=== PATIENT | female | born 1960 | race Two or more races ===

== ENCOUNTER 2020-07-04 19:56 | Inpatient (IN) | payer BC ==
[~2020-07-04] VITALS: Ht 154.9 cm; Wt 88.9 kg
--- NOTE | 2020-07-04 20:00 | NUR ---
pt ZOHRA NESS from the [facility] where she had a R total knee replacement today. pt was in recovery and was requiring O2 which she does not wear at home. upon admit, pt is 92-94% on RA. pt states that she is pain free at this time. no family at bedside. R knee has surgical wrap in place with ice pack attached
--- NOTE | 2020-07-04 20:06 | NUR ---
Dr. Urrutia has been to bedside for eval
--- NOTE | 2020-07-04 20:16 | NUR ---
report to Aaliyah FRIEDMAN
--- NOTE | 2020-07-04 20:25 | NUR ---
Patient desat to 68-69% while sleeping, placed on 2L NC. ERP notified
--- NOTE | 2020-07-04 21:04 | NUR ---
Patient ambultory with steady gait assisted with walker to restroom
[2020-07-04 21:05] LABS: BASOPHILS % (AUTO) 0 % (0-1); EOSINOPHILS % (AUTO) 0 % (1-7); LYMPHOCYTES % (AUTO) 7 % (22-44); MEAN CORPUSCULAR HEMOGLOBIN 31.5 pg (27.0-34.8); MEAN CORPUSCULAR HGB CONC 33.7 g/dL (32.4-35.8); MEAN PLATELET VOLUME 9.4 fL (7.4-10.4); MONOCYTES % (AUTO) 3 % (2-9); NEUTROPHILS % (AUTO) 89 % (42-75); PLATELET COUNT 129 x10^3/uL (130-400); RED BLOOD COUNT 4.73 x10^6/uL (3.82-5.3); RED CELL DISTRIBUTION WIDTH 12.7 % (9.6-15.2)
[2020-07-04 21:15] LABS: ALBUMIN 3.1 g/dL (3.4-5.0); ANION GAP 8 mmol/L (5-15); CALCIUM 8.3 mg/dL (8.5-10.1); CHLORIDE 101 mmol/L (98-107)
[2020-07-04 21:36] LABS: MD SCAN
--- NOTE | 2020-07-04 22:00 | NUR ---
Patient resting comfortably in gurney, respirations even and unlabored. VSS, patient on 2L NC to maintain SPO2 greater than 90% while sleeping.
[2020-07-04] MEDS ORDERED: AZITHROMYCIN 500 MG in SODIUM CHLORIDE 0.9% 250 ML IV ONE (23:00)
[2020-07-04] MEDS ORDERED: AZITHROMYCIN 500 MG TABLET PO ONE (23:00)
--- NOTE | 2020-07-04 23:00 | NUR ---
Patient resting comfortably in gurney, respirations even and unlabored. VSS, patient on 2L NC to maintain SPO2 greater than 90% while sleeping. All monitoring in place
[2020-07-05] MEDS ORDERED: POLYETHYLENE GLYCOL 17 GM PACKET PO PRN
[2020-07-05] MEDS ORDERED: BISACODYL 10 MG SUPP PR PRN
[2020-07-05] MEDS ORDERED: ONDANSETRON ODT 4 MG PO PRN
[2020-07-05 00:31] LABS: TROPONIN I < 0.015 ng/mL (0.000-0.045)
[2020-07-05 00:49] LABS: D-DIMER 4.15 ug/mlFEU (0.00-0.52); INTERNATIONAL NORMALIZED RATIO 1.04 (0.93-1.1)
--- NOTE | 2020-07-05 00:53 | NUR ---
REPORT OF PT FROM IDALIA SHEETS AND ASSUMING CARE OF PT AT THIS TIME.
[2020-07-05] MEDS ORDERED: HEPARIN 5,000 UNITS/ML, 1ML ONE ×2 (01:14→09:40)
[2020-07-05] MEDS ORDERED: NS + 20MEQ KCL 1,000 ML IV ONE ×2 (01:14→09:41)
[2020-07-05] MEDS: HEPARIN 5,000 UNITS/ML, 1ML SQ SCH ×2 (01:28→09:49)
[2020-07-05] MEDS: NS + 20MEQ KCL 1,000 ML IV SCH ×2 (01:28→09:49)
--- NOTE | 2020-07-05 01:48 | NUR ---
Break RN: Verified compatibility with pharmacy; both antibiotics (Zithromax and Rocephin) with ordered doses compatible with NS with 20mEq K. Initiated K in NS per oct. [facility]. Patient has no complaints or needs at this time.
--- NOTE | 2020-07-05 01:57 | NUR ---
PT ASLEEP IN [facility] AT THIS TIME; NADN. CALL LIGHT IS WITHIN REACH. PT ATTACHED TO VS MONITORS WITH STABLE VS.
[2020-07-05] MEDS ORDERED: CEFTRIAXONE PMX 1GM/50ML 50 ML ONE (02:19)
[2020-07-05] MEDS: CEFTRIAXONE PMX 1GM/50ML 50 ML IV SCH (02:26)
--- NOTE | 2020-07-05 02:26 | NUR ---
pt medicated per oct. pt vss and updated in emr at this time.
[2020-07-05 06:01] LABS: BASOPHILS % (AUTO) 0 % (0-1); EOSINOPHILS % (AUTO) 0 % (1-7); LYMPHOCYTES % (AUTO) 12 % (22-44); MEAN CORPUSCULAR HEMOGLOBIN 31.5 pg (27.0-34.8); MEAN CORPUSCULAR HGB CONC 33.4 g/dL (32.4-35.8); MEAN PLATELET VOLUME 9.3 fL (7.4-10.4); MONOCYTES % (AUTO) 5 % (2-9); NEUTROPHILS % (AUTO) 83 % (42-75); PLATELET COUNT 129 x10^3/uL (130-400); RED BLOOD COUNT 4.44 x10^6/uL (3.82-5.3); RED CELL DISTRIBUTION WIDTH 12.3 % (9.6-15.2)
[2020-07-05 06:09] LABS: ANION GAP 4 mmol/L (5-15); CALCIUM 8.2 mg/dL (8.5-10.1); CHLORIDE 107 mmol/L (98-107); CREATININE 0.42 mg/dL (0.55-1.02)
[2020-07-05 06:14] LABS: MD NO
--- NOTE | 2020-07-05 07:12 | NUR ---
REPORT OF PT TO IDALIA MONTENEGRO. ALL QUESTIONS ANSWERED.
--- NOTE | 2020-07-05 07:14 | NUR ---
REPORT RECEIVED FROM IDALIA HEARN FOR TRANSFER OF PATIENT CARE.
[2020-07-05] MEDS ORDERED: ACETAMINOPHEN 325 MG TABLET ONE (09:40)
[2020-07-05] MEDS ORDERED: SENNA/DOCUSATE TABLET ONE (09:40)
[2020-07-05] MEDS: SENNA/DOCUSATE TABLET PO SCH (09:48)
[2020-07-05] MEDS: ACETAMINOPHEN 325 MG TABLET PO PRN ×2 (09:49→19:45)
--- NOTE | 2020-07-05 10:01 | NUR ---
PATIENT MEDICATED PER eMAR, BREAKFAST TRAY AND ICE WATER PROVIDED, CONNECTED TO VITALS MACHINE, CALL LIGHT WITHIN REACH, NO FURTHER NEEDS AT THIS TIME.
--- NOTE | 2020-07-05 11:10 | NUR ---
PATIENT RESTING IN GURNEY WATCHING TV, CONNECTED TO WAD BLANKING PRESS ADJUSTER, NO SIGNS OF ACUTE DISTRESS, CALL LIGHT WITHIN REACH, LUNCH TRAY ORDERED, NO FURTHER NEEDS AT THIS TIME.
--- NOTE | 2020-07-05 12:36 | NUR ---
LUNCH TRAY PROVIDED, PATIENT SITTING IN GURNEY WATCHING TV, CONNECTED TO CHEMIST HELPER, NO SIGNS OF ACUTE DISTRESS, CALL LIGHT WITHIN REACH.
--- NOTE | 2020-07-05 14:49 | NUR ---
PATIENT SITTING IN GURNEY WATCHING TV, CONNECTED TO TOOL DESIGN ENGINEER, NO SIGNS OF ACUTE DISTRESS, PLUGGED PATIENT'S CELL PHONE IN, CALL LIGHT WITHIN REACH, NO FURTHER NEEDS AT THIS TIME.
--- NOTE | 2020-07-05 15:20 | NUR ---
REPORT CALLED TO IDALIA TREVINO ON MEDICAL.
--- NOTE | 2020-07-05 15:33 | NUR ---
PATIENT TO IMAGING FOR CTA.
[2020-07-05] MEDS ORDERED: OMNIPAQUE 350 MG/ML, 100ML BOTTLE ONE (15:53)
--- NOTE | 2020-07-05 16:00 | NUR ---
PATIENT TRANSFERRED IN STABLE CONDITION VIA GURNEY BY CARDIOTHORACIC SURGEON TO [facility] FLO[facility]. ALL PATIENT BELONGINGS GATHERED AND TAKEN WITH PATIENT.
[2020-07-05 16:44] VITALS: BP 104/70
[2020-07-05] MEDS ORDERED: LISI-170 PO (17:14)
[2020-07-05] MEDS: ASCORBIC ACID 500 MG TABLET PO SCH (17:31)
[2020-07-05] MEDS: DEXAMETHASONE 4 MG/ML, 1ML IVPush SCH (17:32)
[2020-07-05] MEDS: ENOXAPARIN 40 MG/0.4 ML SQ SCH (17:32)
[2020-07-05] MEDS: THIAMINE 100MG TABLET PO SCH (19:45)
[2020-07-05 19:48] VITALS: BP 111/73
[2020-07-05] MEDS: AZITHROMYCIN 500 MG in SODIUM CHLORIDE 0.9% 250 ML IV SCH ×2 (23:14)
[2020-07-06] MEDS: CEFTRIAXONE PMX 1GM/50ML 50 ML IV SCH (02:28)
[2020-07-06 02:29] VITALS: BP 97/60
[2020-07-06] MEDS: NS + 20MEQ KCL 1,000 ML IV SCH ×2 (02:41→21:03)
[2020-07-06 05:50] LABS: BASOPHILS % (AUTO) 0 % (0-1); EOSINOPHILS % (AUTO) 0 % (1-7); LYMPHOCYTES % (AUTO) 8 % (22-44); MEAN CORPUSCULAR HEMOGLOBIN 31.3 pg (27.0-34.8); MEAN CORPUSCULAR HGB CONC 33.3 g/dL (32.4-35.8); MEAN PLATELET VOLUME 9.4 fL (7.4-10.4); MONOCYTES % (AUTO) 3 % (2-9); NEUTROPHILS % (AUTO) 88 % (42-75); PLATELET COUNT 140 x10^3/uL (130-400); RED BLOOD COUNT 4.14 x10^6/uL (3.82-5.3); RED CELL DISTRIBUTION WIDTH 12.5 % (9.6-15.2)
[2020-07-06 05:55] LABS: MD NO
[2020-07-06 06:02] LABS: ANION GAP 3 mmol/L (5-15); CHLORIDE 109 mmol/L (98-107); CREATININE 0.42 mg/dL (0.55-1.02); D-DIMER 2.5 ug/mlFEU (0.00-0.52)
[2020-07-06 06:12] LABS: C-REACTIVE PROTEIN, QUANT 6.84 mg/dL (0.02-0.49)
[2020-07-06 06:45] VITALS: BP 112/67
[2020-07-06] MEDS ORDERED: ASCORBIC ACID 250 MG TAB ONE (09:18)
[2020-07-06] MEDS: CHOLECALCIFEROL 1,000 UNIT TABLET PO SCH (09:24)
[2020-07-06] MEDS: ASCORBIC ACID 500 MG TABLET PO SCH ×2 (09:25→17:30)
[2020-07-06] MEDS: THIAMINE 100MG TABLET PO SCH ×2 (09:25→20:13)
[2020-07-06] MEDS: ZINC SULFATE 220 MG CAPSULE PO SCH (09:25)
[2020-07-06] MEDS: SENNA/DOCUSATE TABLET PO SCH (09:25)
[2020-07-06] MEDS: ACETAMINOPHEN 325 MG TABLET PO PRN ×2 (10:57→21:03)
[2020-07-06] MEDS ORDERED: HYDROcodone/APAP 5/325 TABLET PO PRN (12:00)
[2020-07-06 12:11] VITALS: BP 132/77
[2020-07-06] MEDS: ENOXAPARIN 40 MG/0.4 ML SQ SCH (17:32)
[2020-07-06] MEDS: DEXAMETHASONE 4 MG/ML, 1ML IVPush SCH (17:32)
[2020-07-06 19:14] VITALS: BP 109/70
[2020-07-06] MEDS: AZITHROMYCIN 500 MG in SODIUM CHLORIDE 0.9% 250 ML IV SCH (22:31)
[2020-07-07 00:43] VITALS: BP 118/75
[2020-07-07] MEDS: CEFTRIAXONE PMX 1GM/50ML 50 ML IV SCH (02:09)
[2020-07-07 06:05] LABS: BASOPHILS % (AUTO) 0 % (0-1); EOSINOPHILS % (AUTO) 0 % (1-7); LYMPHOCYTES % (AUTO) 10 % (22-44); MEAN CORPUSCULAR HEMOGLOBIN 31.5 pg (27.0-34.8); MEAN CORPUSCULAR HGB CONC 33.3 g/dL (32.4-35.8); MEAN PLATELET VOLUME 9.1 fL (7.4-10.4); MONOCYTES % (AUTO) 3 % (2-9); NEUTROPHILS % (AUTO) 86 % (42-75); PLATELET COUNT 170 x10^3/uL (130-400); RED CELL DISTRIBUTION WIDTH 12.4 % (9.6-15.2)
[2020-07-07 06:17] LABS: MD NO
[2020-07-07 09:31] VITALS: BP 131/84
[2020-07-07] MEDS: SENNA/DOCUSATE TABLET PO SCH (09:49)
[2020-07-07] MEDS: ASCORBIC ACID 500 MG TABLET PO SCH ×2 (09:49→17:17)
[2020-07-07] MEDS: THIAMINE 100MG TABLET PO SCH ×2 (09:50→22:32)
[2020-07-07] MEDS: CHOLECALCIFEROL 1,000 UNIT TABLET PO SCH (09:50)
[2020-07-07] MEDS: ZINC SULFATE 220 MG CAPSULE PO SCH (09:50)
[2020-07-07 12:24] VITALS: BP 124/76
[2020-07-07] MEDS: ENOXAPARIN 40 MG/0.4 ML SQ SCH (17:17)
[2020-07-07] MEDS: DEXAMETHASONE 4 MG/ML, 1ML IVPush SCH (17:17)
[2020-07-07 20:55] VITALS: BP 123/77
[2020-07-07] MEDS: AZITHROMYCIN 500 MG in SODIUM CHLORIDE 0.9% 250 ML IV SCH (22:32)
[2020-07-08 00:21] VITALS: BP 131/77
[2020-07-08] MEDS: CEFTRIAXONE PMX 1GM/50ML 50 ML IV SCH (02:06)
[2020-07-08] MEDS: PANTOPRAZOLE 40MG TABLET PO SCH (04:20)
[2020-07-08 06:25] LABS: BASOPHILS % (AUTO) 0 % (0-1); EOSINOPHILS % (AUTO) 0 % (1-7); LYMPHOCYTES % (AUTO) 13 % (22-44); MEAN CORPUSCULAR HEMOGLOBIN 31.3 pg (27.0-34.8); MEAN CORPUSCULAR HGB CONC 33.4 g/dL (32.4-35.8); MEAN PLATELET VOLUME 9.2 fL (7.4-10.4); MONOCYTES % (AUTO) 5 % (2-9); NEUTROPHILS % (AUTO) 82 % (42-75); PLATELET COUNT 194 x10^3/uL (130-400); RED BLOOD COUNT 4.22 x10^6/uL (3.82-5.3); RED CELL DISTRIBUTION WIDTH 12.7 % (9.6-15.2)
[2020-07-08 06:27] VITALS: BP 125/77
[2020-07-08 06:34] LABS: MD NO
[2020-07-08 06:39] LABS: D-DIMER 1.64 ug/mlFEU (0.00-0.52)
[2020-07-08 07:13] LABS: C-REACTIVE PROTEIN, QUANT 3.19 mg/dL (0.02-0.49)
[2020-07-08] MEDS: SENNA/DOCUSATE TABLET PO SCH (08:38)
[2020-07-08] MEDS: THIAMINE 100MG TABLET PO SCH ×2 (08:38→21:27)
[2020-07-08] MEDS: CHOLECALCIFEROL 1,000 UNIT TABLET PO SCH (08:38)
[2020-07-08] MEDS: ZINC SULFATE 220 MG CAPSULE PO SCH (08:38)
[2020-07-08] MEDS: ASCORBIC ACID 500 MG TABLET PO SCH ×2 (08:38→16:53)
[2020-07-08] MEDS: GUAIFENESIN/COD200MG-20MG/10ML LIQUID PO PRN (08:50)
[2020-07-08 13:56] VITALS: BP 133/75
[2020-07-08] MEDS: ENOXAPARIN 40 MG/0.4 ML SQ SCH (16:53)
[2020-07-08] MEDS: DEXAMETHASONE 4 MG/ML, 1ML IVPush SCH (16:53)
[2020-07-08 18:39] LABS: ALANINE AMINOTRANSFERASE 35 U/L (12-78); ALBUMIN 2.6 g/dL (3.4-5.0)
[2020-07-08 18:41] LABS: ALKALINE PHOSPHATASE 61 U/L (45-117); BILIRUBIN, DIRECT < 0.1 mg/dL (0.1-0.2); BILIRUBIN,TOTAL 0.3 mg/dL (0.2-1.0); TOTAL PROTEIN 6.5 g/dL (6.4-8.2)
[2020-07-08 18:54] LABS: BILIRUBIN,INDIRECT 0.2 mg/dL (0.0-2.0)
[2020-07-08] MEDS ORDERED: REMDESIVIR 200 MG in SODIUM CHLORIDE 0.9% 250 ML IVPB ONE (20:00)
[2020-07-08 20:56] VITALS: BP 125/83
[2020-07-09] MEDS: AZITHROMYCIN 500 MG in SODIUM CHLORIDE 0.9% 250 ML IV SCH ×2 (00:06→23:00)
[2020-07-09 01:49] VITALS: BP 131/69
[2020-07-09] MEDS: CEFTRIAXONE PMX 1GM/50ML 50 ML IV SCH (02:24)
[2020-07-09 05:47] LABS: CHLORIDE 107 mmol/L (98-107); D-DIMER 1.71 ug/mlFEU (0.00-0.52)
[2020-07-09 05:56] LABS: ALANINE AMINOTRANSFERASE 45 U/L (12-78); ALBUMIN 2.5 g/dL (3.4-5.0); ALKALINE PHOSPHATASE 65 U/L (45-117); ANION GAP 7 mmol/L (5-15); BASOPHILS % (AUTO) 1 % (0-1); BILIRUBIN,TOTAL 0.4 mg/dL (0.2-1.0); CALCIUM 8.6 mg/dL (8.5-10.1); CREATININE 0.53 mg/dL (0.55-1.02); EOSINOPHILS % (AUTO) 0 % (1-7); LYMPHOCYTES % (AUTO) 17 % (22-44); MEAN CORPUSCULAR HEMOGLOBIN 31.8 pg (27.0-34.8); MEAN CORPUSCULAR HGB CONC 33.7 g/dL (32.4-35.8); MEAN PLATELET VOLUME 9.5 fL (7.4-10.4); MONOCYTES % (AUTO) 5 % (2-9); NEUTROPHILS % (AUTO) 77 % (42-75); PLATELET COUNT 200 x10^3/uL (130-400); RED BLOOD COUNT 4.26 x10^6/uL (3.82-5.3); RED CELL DISTRIBUTION WIDTH 12.6 % (9.6-15.2); TOTAL PROTEIN 6.8 g/dL (6.4-8.2)
[2020-07-09 05:59] LABS: MD NO
[2020-07-09] MEDS: PANTOPRAZOLE 40MG TABLET PO SCH (06:05)
[2020-07-09 08:26] VITALS: BP 110/70
[2020-07-09] MEDS: SENNA/DOCUSATE TABLET PO SCH (09:00)
[2020-07-09] MEDS: THIAMINE 100MG TABLET PO SCH ×2 (10:22→20:47)
[2020-07-09] MEDS: CHOLECALCIFEROL 1,000 UNIT TABLET PO SCH (10:22)
[2020-07-09] MEDS: GUAIFENESIN/COD200MG-20MG/10ML LIQUID PO PRN (10:22)
[2020-07-09] MEDS: ZINC SULFATE 220 MG CAPSULE PO SCH (10:22)
[2020-07-09] MEDS: ASCORBIC ACID 500 MG TABLET PO SCH ×2 (10:23→17:19)
[2020-07-09] MEDS: ACETAMINOPHEN 325 MG TABLET PO PRN (10:23)
[2020-07-09 12:23] VITALS: BP 136/87
[2020-07-09] MEDS: ENOXAPARIN 40 MG/0.4 ML SQ SCH (17:00)
[2020-07-09] MEDS: DEXAMETHASONE 4 MG/ML, 1ML IVPush SCH (17:19)
[2020-07-09] MEDS ORDERED: FUROSEMIDE 20 MG/2 ML IV ONE (17:30)
[2020-07-09 19:30] VITALS: BP 129/84
[2020-07-09] MEDS: REMDESIVIR 100 MG in SODIUM CHLORIDE 0.9% 250 ML IVPB SCH (20:47)
[2020-07-10 01:09] VITALS: BP 120/79
[2020-07-10] MEDS: CEFTRIAXONE PMX 1GM/50ML 50 ML IV SCH (01:58)
[2020-07-10] MEDS: PANTOPRAZOLE 40MG TABLET PO SCH (05:12)
[2020-07-10 08:00] VITALS: BP 124/79
[2020-07-10] MEDS: SENNA/DOCUSATE TABLET PO SCH (09:00)
[2020-07-10] MEDS: CHOLECALCIFEROL 1,000 UNIT TABLET PO SCH (09:00)
[2020-07-10] MEDS: ASCORBIC ACID 500 MG TABLET PO SCH ×2 (09:06→18:04)
[2020-07-10] MEDS: THIAMINE 100MG TABLET PO SCH ×2 (09:06→20:36)
[2020-07-10] MEDS: ZINC SULFATE 220 MG CAPSULE PO SCH (09:06)
[2020-07-10 14:00] VITALS: BP 114/74
[2020-07-10] MEDS: ENOXAPARIN 40 MG/0.4 ML SQ SCH (17:00)
[2020-07-10] MEDS: DEXAMETHASONE 4 MG/ML, 1ML IVPush SCH (18:04)
[2020-07-10 18:09] VITALS: BP 126/86
[2020-07-10] MEDS: REMDESIVIR 100 MG in SODIUM CHLORIDE 0.9% 250 ML IVPB SCH (20:36)
[2020-07-11 01:05] VITALS: BP 123/77
[2020-07-11] MEDS: CEFTRIAXONE PMX 1GM/50ML 50 ML IV SCH (01:36)
[2020-07-11] MEDS: PANTOPRAZOLE 40MG TABLET PO SCH (04:53)
[2020-07-11 08:11] VITALS: BP 121/72
[2020-07-11] MEDS ORDERED: FUROSEMIDE 20 MG/2 ML ONE (08:44)
[2020-07-11] MEDS: SENNA/DOCUSATE TABLET PO SCH (08:53)
[2020-07-11] MEDS: CHOLECALCIFEROL 1,000 UNIT TABLET PO SCH (08:53)
[2020-07-11] MEDS: THIAMINE 100MG TABLET PO SCH ×2 (08:53→21:08)
[2020-07-11] MEDS: ASCORBIC ACID 500 MG TABLET PO SCH ×2 (08:54→17:30)
[2020-07-11] MEDS: ZINC SULFATE 220 MG CAPSULE PO SCH (08:54)
[2020-07-11] MEDS ORDERED: FUROSEMIDE 20 MG/2 ML IV ONE (09:00)
[2020-07-11 11:02] LABS: BASOPHILS % (AUTO) 1 % (0-1); EOSINOPHILS % (AUTO) 0 % (1-7); LYMPHOCYTES % (AUTO) 15 % (22-44); MEAN CORPUSCULAR HEMOGLOBIN 31.1 pg (27.0-34.8); MEAN PLATELET VOLUME 8.7 fL (7.4-10.4); MONOCYTES % (AUTO) 5 % (2-9); NEUTROPHILS % (AUTO) 79 % (42-75); PLATELET COUNT 289 x10^3/uL (130-400); RED BLOOD COUNT 4.72 x10^6/uL (3.82-5.3); RED CELL DISTRIBUTION WIDTH 12.8 % (9.6-15.2)
[2020-07-11 11:13] LABS: ALANINE AMINOTRANSFERASE 58 U/L (12-78); ALBUMIN 2.9 g/dL (3.4-5.0); ANION GAP 7 mmol/L (5-15); CHLORIDE 104 mmol/L (98-107); CREATININE 0.61 mg/dL (0.55-1.02)
[2020-07-11 11:16] LABS: ALKALINE PHOSPHATASE 92 U/L (45-117); BILIRUBIN,TOTAL 0.4 mg/dL (0.2-1.0); TOTAL PROTEIN 7.3 g/dL (6.4-8.2)
[2020-07-11 11:17] LABS: MD SCAN
[2020-07-11 14:25] VITALS: BP 128/64
[2020-07-11] MEDS: ENOXAPARIN 40 MG/0.4 ML SQ SCH (17:00)
[2020-07-11] MEDS: DEXAMETHASONE 4 MG/ML, 1ML IVPush SCH (17:30)
[2020-07-11 19:31] VITALS: BP 112/77
[2020-07-11] MEDS: REMDESIVIR 100 MG in SODIUM CHLORIDE 0.9% 250 ML IVPB SCH (21:08)
[2020-07-12 00:56] VITALS: BP 131/80
[2020-07-12] MEDS: CEFTRIAXONE PMX 1GM/50ML 50 ML IV SCH (01:28)
[2020-07-12] MEDS: PANTOPRAZOLE 40MG TABLET PO SCH (04:53)
[2020-07-12 07:23] VITALS: BP 126/86
[2020-07-12] MEDS: SENNA/DOCUSATE TABLET PO SCH (09:00)
[2020-07-12] MEDS: CHOLECALCIFEROL 1,000 UNIT TABLET PO SCH (09:26)
[2020-07-12] MEDS: THIAMINE 100MG TABLET PO SCH ×2 (09:26→21:33)
[2020-07-12] MEDS: ASCORBIC ACID 500 MG TABLET PO SCH ×2 (09:26→16:43)
[2020-07-12] MEDS: ZINC SULFATE 220 MG CAPSULE PO SCH (09:26)
[2020-07-12 13:21] VITALS: BP 107/75
[2020-07-12 13:33] LABS: BASOPHILS % (AUTO) 1 % (0-1); EOSINOPHILS % (AUTO) 0 % (1-7); LYMPHOCYTES % (AUTO) 15 % (22-44); MEAN CORPUSCULAR HEMOGLOBIN 30.9 pg (27.0-34.8); MEAN PLATELET VOLUME 9.1 fL (7.4-10.4); MONOCYTES % (AUTO) 6 % (2-9); NEUTROPHILS % (AUTO) 79 % (42-75); PLATELET COUNT 289 x10^3/uL (130-400); RED BLOOD COUNT 4.84 x10^6/uL (3.82-5.3); RED CELL DISTRIBUTION WIDTH 12.7 % (9.6-15.2)
[2020-07-12 13:43] LABS: ALANINE AMINOTRANSFERASE 68 U/L (12-78); ANION GAP 7 mmol/L (5-15); CALCIUM 8.7 mg/dL (8.5-10.1); CHLORIDE 103 mmol/L (98-107); CREATININE 0.54 mg/dL (0.55-1.02)
[2020-07-12 13:46] LABS: ALKALINE PHOSPHATASE 81 U/L (45-117); BILIRUBIN,TOTAL 0.4 mg/dL (0.2-1.0); MD NO; TOTAL PROTEIN 7.2 g/dL (6.4-8.2)
[2020-07-12 15:38] LABS: D-DIMER 2.21 ug/mlFEU (0.00-0.52); PROTHROMBIN TIME 10.6 Seconds (9.6-11.5)
[2020-07-12] MEDS: DEXAMETHASONE 4 MG/ML, 1ML IVPush SCH (16:43)
[2020-07-12] MEDS: ENOXAPARIN 40 MG/0.4 ML SQ SCH (16:43)
[2020-07-12 19:52] VITALS: BP 118/77
[2020-07-12] MEDS: REMDESIVIR 100 MG in SODIUM CHLORIDE 0.9% 250 ML IVPB SCH (21:33)
[2020-07-13 01:04] VITALS: BP 121/77
[2020-07-13] MEDS: CEFTRIAXONE PMX 1GM/50ML 50 ML IV SCH (02:51)
[2020-07-13] MEDS: PANTOPRAZOLE 40MG TABLET PO SCH (05:43)
[2020-07-13 06:41] VITALS: BP 123/81
[2020-07-13] MEDS: SENNA/DOCUSATE TABLET PO SCH (09:00)
[2020-07-13] MEDS: ASCORBIC ACID 500 MG TABLET PO SCH ×2 (09:18→16:24)
[2020-07-13] MEDS: THIAMINE 100MG TABLET PO SCH (09:18)
[2020-07-13] MEDS: CHOLECALCIFEROL 1,000 UNIT TABLET PO SCH (09:18)
[2020-07-13] MEDS: ZINC SULFATE 220 MG CAPSULE PO SCH (09:18)
[2020-07-13] MEDS ORDERED: ASCO500T9 PO (12:34)
[2020-07-13] MEDS ORDERED: CHOL10003 PO (12:34)
[2020-07-13] MEDS ORDERED: ZINC220C7 PO (12:34)
[2020-07-13] MEDS ORDERED: THIA100T67 PO (12:34)
[2020-07-13] MEDS ORDERED: CEFD300C37 PO (12:36)
[2020-07-13] MEDS ORDERED: DEXA6TAB6 PO (12:37)
[2020-07-13 13:08] VITALS: BP 109/73
[2020-07-13] MEDS: DEXAMETHASONE 4 MG/ML, 1ML IVPush SCH (16:24)
[2020-07-13] MEDS: ENOXAPARIN 40 MG/0.4 ML SQ SCH (16:24)
== END 2020-07-13 18:33 | disposition home health service (06) | DRG 177 ==
LOC: ED 21:45 → EDIP 22:56 → 3N 07-05 16:03
PROVIDERS: ADMIT Internal Medicine; ATTEND Hospitalist
PROC: XW033E5 Introduction of Remdesivir Anti-infective into Peripheral Vein, Percutaneous Approach, New Technology Group 5 (ICD-10-PCS; principal; 2020-07-08)
DX: U07.1 COVID-19 (principal); J12.89 Other viral pneumonia; J96.01 Acute respiratory failure with hypoxia; E87.1 Hypo-osmolality and hyponatremia; E87.2 Acidosis; D69.6 Thrombocytopenia, unspecified; E87.6 Hypokalemia; I10 Essential (primary) hypertension; Z96.651 Presence of right artificial knee joint
CPT/HCPCS: 36415; 36600; 71045; 71275; 80048; 80053; 80076; 82040; 82728; 82803; 83605; 83615; 83735; 83880; 84145; 84484; 85025; 85379; 85384; 85610; 85730; 86140; 87040; 87070; 87205; 87635; 99285; G0378; J0456; J0696; J1100; J1644; J1650; J3480; Q9967; J1940; J7050